=== PATIENT | male | born 1995 | race Caucasian/White ===

== ENCOUNTER 2018-05-11 11:50 | Emergency (ER) | payer SELFPAY ==
[2018-05-11 12:12] VITALS: BP 108/72
--- NOTE | 2018-05-11 15:10 | Emergency Department Report ---
Chief Complaint: Anxiety Stated Complaint: DRY TONGUE, ANXIETY Time Seen by Provider: 05/11/18 14:58 - Exam Vital Signs: Vital Signs 05/11/18 12:09 Temperature 98.2 F Pulse Rate 67 Respiratory 18 Rate Blood Pressure 108/72 O2 Sat by Pulse 98 Oximetry MSE screening note: Mr. Bergeron presents with mild nondescript headache, memory loss. He has had 4 years of abdominal pain. No current medical emergency. Referred to outside clinic. MSE performed and completed. ED Disposition for MSE Condition: Stable Referrals: PRIMARY CARE, [Primary Care Provider] - 3-5 Days
== END 2018-05-11 15:12 | disposition home or self-care (01) ==
LOC: ED 11:50
DX: F41.9 Anxiety disorder, unspecified (principal)
CPT/HCPCS: 99282